=== PATIENT | female | born 1955 | race Two or more races ===

== ENCOUNTER → 2016-11-18 | Outpatient (CLI) | payer OTHER ==
[2016-11-18 09:44] LABS: ASPARTATE AMINO TRANSFERASE 23 U/L (15-37)
[2016-11-18 10:04] LABS: LARGE PLATELETS 1+
== END | disposition home or self-care (01) ==
LOC: LAB 09:18
PROVIDERS: ATTEND Internal Medicine
DX: M05.79 Rheumatoid arthritis with rheumatoid factor of multiple sites without organ or systems involvement (principal); Z79.899 Other long term (current) drug therapy
CPT/HCPCS: 36415; 80076; 82565; 85025